=== PATIENT | male | born 1985 | race Caucasian/White ===

== ENCOUNTER 2018-09-24 23:55 | Emergency (ER) | payer OTHER ==
[~2018-09-24] VITALS: Ht 172.7 cm; Wt 102.1 kg
[~2018-09-24 23:55] MED LIST: BUTALB-APAP-CA1 EACH PO
[2018-09-25] MEDS ORDERED: SYNTHROID75 MCG PO (00:52)
[2018-09-25 01:25] LABS: ABSOLUTE NEUTROPHILS 3.4 thou/uL (1.4-8.2); BASOPHILS 0.8 % (0.0-2.0); EOSINOPHILS 4.3 % (0.0-3.0); HEMATOCRIT 43.4 % (42.0-52.0); HEMOGLOBIN 14.9 gm/dL (14.0-18.0); LYMPHOCYTES 44.8 % (24.0-44.0); MCH 30.2 pg (26.0-34.0); MCHC 34.2 g/dL (28.0-37.0); MCV 88.2 fL (80.0-100.0); MONOCYTES 7.3 % (1.0-8.0); PLATELET COUNT 287 thou/uL (150-400); POLYS 42.8 % (36.0-66.0); RBC 4.93 mil/uL (4.50-6.00); WBC 7.9 thou/uL (4.0-11.0)
[2018-09-25 01:28] LABS: ANION GAP 7 mmol/L (7-16); BUN 14 mg/dL (7-18); CALCIUM 9.3 mg/dL (8.5-10.1); CHLORIDE 103 mmol/L (98-107); CO2 31 mmol/L (21-32); CREATININE 1.1 mg/dL (0.7-1.3); GLUCOSE 115 mg/dL (74-106); POTASSIUM 4.3 mmol/L (3.5-5.1); SODIUM 141 mmol/L (136-145)
[2018-09-25 01:37] LABS: TROPONIN-I <0.06 ng/mL (<0.06)
[2018-09-25] MEDS ORDERED: NAPROSYN500 MG PO (02:03)
[2018-09-25 02:49] VITALS: BP 131/45
--- NOTE | 2018-09-25 08:35 | EKG ---
[place] [address] [facility] [employer] [place] [address] ELECTROCARDIOGRAM REPORT Name: ASHWINI RICHARDSON [id number] ������������������ Admission: 09/24/18 ������������������ Attend Phys: Discharge: 09/25/18 ������������������ Date of : 81 Report #: [id number] ����������������������������������������������������������������� [id number] THIS REPORT FOR: //name// [facility] ED Test Date: 2018-09-25 Test Time: 00:06:38 Pat Name: ASHWINI RICHARDSON Department: Room: Gender: M [employer]: RE REED : 1985 Requested By: Negrito Tierney Order Number: [id number] MD: Talib Valentin Measurements Intervals [place] Rate: 76 P: [place]: QRS: -14 QRSD: 104 T: 3 QT: 360 QTc: 405 Interpretive Statements Sinus rhythm Poor R wave progression Borderline T abnormalities, inferior leads No previous ECG available for comparison Electronically Signed On 09-25-2018 8:35:10 [employer] by Talib Valentin [email or web address] ��������������������������������������������� <ELECTRONICALLY SIGNED> ���������������������������������������� By: Talib Valentin MD, [facility] ��������������������������������������������� 09/25/18 0835 0006 Talib Valentin MD, FACC /EPI
== END 2018-09-25 02:49 | disposition home or self-care (01) ==
LOC: ER 23:55
PROVIDERS: Emergency Medicine
DX: R07.89 Other chest pain (principal); E03.9 Hypothyroidism, unspecified